=== PATIENT | male | born 1985 | race Caucasian/White ===

== ENCOUNTER 2018-03-26 02:03 | Emergency (ER) | payer OTHER ==
[~2018-03-26] VITALS: Ht 170.2 cm; Wt 88.5 kg
[~2018-03-26 02:03] MED LIST: AMT25 PO; ATV5 PO; FLX10 PO; MELA3TAB7
[2018-03-26 02:05] VITALS: Ht 170.2 cm; Wt 88.5 kg
[2018-03-26] MEDS ORDERED: PRLSR20 PO (02:30)
[2018-03-26] MEDS ORDERED: AMPH30TA2 PO (02:31)
[2018-03-26] MEDS ORDERED: DiphenhydrAMINE HCL 50 MG/ML VIAL IV STA (02:31)
[2018-03-26] MEDS ORDERED: ONDA4TAB46 PO (02:31)
[2018-03-26] MEDS ORDERED: PROCHLORPERAZINE 5 MG/ML 2 ML VIAL IV STA (02:31)
[2018-03-26] MEDS ORDERED: SODIUM CHLORIDE 0.9% 1000ML 1,000 ML IV STA (02:31)
[2018-03-26] MEDS ORDERED: SUMATRIPTAN SUCCINATE 6 MG/0.5 ML VIAL SQ STA (02:31)
--- NOTE | 2018-03-26 02:31 | EMERGENCY ROOM VISIT NOTE ---
History Report prepared by Pavel: Denver Robles Under the Supervision of: Dr. Ragini Webb D.O. First contact with patient: 02:11 Chief Complaint: HEADACHE Stated Complaint: MIGRAINE History of Present Illness The patient is a 32 year old male who presents to the Emergency Room with complaints of a constant, severe, headache beginning 3.5 hours ago. The patient states he has a history of migraines. He reports he had his first migraine in a while one year ago. The patient notes he was given IV Tylenol and sumatriptan, and this helped his symptoms. He states he had another 4 months later. The patient reports he obtained glasses and then has not had another one until this evening. He notes he typically has an eye twitch before his migraines start. The patient states he felt his eye twitch before he went to be at 9PM. He reports he woke up at 11PM with his migraine and took 1000mg of Tylenol and 600mg ibuprofen. This was dull and constant and slowly worsening. The patient notes his pain continued, and he took another 1000mg of Tylenol at 12AM. He states lying back worsens his symptoms and sitting up helps. The patient reports his migraine typically is located in the front of his head, but this one is located in the front and in the back. He reports he also has a right ear ache which is not typical. He notes the positional changes are typical. The patient states he also has nausea, a runny nose, and congestion, which are all markers of his usual migraines. He denies having any triggers of his migraines. The patient reports he used to take amitriptyline and sumatriptan, but he stopped them because he had not had a migraine in a long time. He notes he also has a family history of migraines. The patient states he typically has two Coca- [employer]a a day, but for the past week he has only had two total. He denies fevers, chills, changes in diet, changes in medication, vomiting, diarrhea, shortness of breath, leg swelling, palpitations, ear ringing, numbness, weakness, and a history of prolonged migraines. No recent head trauma. Not recently ill. Source of History: patient Onset: 3.5 hours ago Position: head Symptom Intensity: severe Quality: ache Timing: constant Modifying Factors (Worsening): other (lying down) Modifying Factors (Relieving): other (sitting up) Associated Symptoms: + nausea, No fevers, No chills, No SOB, No vomiting, No weakness, No numbness Note: Associated symptoms: right ear ache, runny nose, congestion Denies: ear ringing, leg swelling, palpitations Review of Systems See HPI for pertinent positives & negatives. A total of 10 systems reviewed and were otherwise negative. Past Medical & Surgical Medical Problems: (1) Migraine Family History Patient reports no known family medical history. Social History Smoking Status: Never Smoker Occupation Status: employed Current/Historical Medications Scheduled Amphetamine-Dextroamphetamine 30MG (Adderall 30MG), 30 MG PO QAM Omeprazole (Prilosec), 20 MG PO DAILY Scheduled PRN Ondansetron Hcl (Zofran), 4 MG PO Q8 PRN for Nausea Trazodone Hcl (Trazodone), Unknown Dose PO HS PRN for Insomnia Allergies Coded Allergies: Latex1 -Allergic Contact Dermititis (Unverified Allergy, Mild, 07/14/08) Physical Exam Vital Signs Date Time Temp Pulse Resp B/P (MAP) Pulse Ox O2 Delivery O2 Flow Rate FiO2 03/26/18 06:53 77 18 118/73 98 03/26/18 06:12 75 17 111/73 97 Room Air 03/26/18 02:05 36.4 61 18 130/81 96 Room Air Physical Exam GENERAL: alert, well appearing, well nourished, no distress, non-toxic. Photosensitivity noted. Pt sitting in dark room. EYE EXAM: normal conjunctiva, PERRL and EOM's grossly intact OROPHARYNX: no exudate, no erythema, lips, buccal mucosa, and tongue normal and mucous membranes are moist EARS: normal canals b/l, nml TM's b/l, no effusions, no erythema NECK: supple, no nuchal rigidity, no adenopathy, non-tender LUNGS: Clear to auscultation. Normal chest wall mechanics HEART: no murmurs, S1 normal and S2 normal ABDOMEN: abdomen soft, non-tender, normo-active bowel sounds, no masses, no rebound or guarding. BACK: Back is symmetrical on inspection and there is no deformity, no midline tenderness, no CVA tenderness. SKIN: no rashes and no bruising UPPER EXTREMITIES: upper extremities are grossly normal. FROM, nml pulses. LOWER EXTREMITIES: No pitting edema. FROM, nml pulses. NEURO EXAM: Normal sensorium, cranial nerves II-XII grossly intact, normal speech, no gross weakness of arms, no gross weakness of legs. Medical Decision & Procedures ER Provider Diagnostic Interpretation: Radiology results have been interpreted by the [facility] radiologist and reviewed by me. CT HEAD: FINDINGS: No intracranial hemorrhage, abnormal intra- or extra-axial collections or parenchymal lesions are seen. The shape and configuration of the cortical sulci, basal cisterns and ventricles are within normal limits. The aiken -white differentiation is preserved. No evidence of mass effect, midline shift, or edema. The osseous structures are unremarkable. The visualized portions of the paranasal sinuses are clear. Mastoid air cells are well pneumatized. IMPRESSION: Normal non-contrast CT scan of the head. Radiologist: Jax Fuentes MD Study ready at 0314 and initial results transmitted at 0334. Medications Administered Medications (Trade) Dose Ordered Sig/Renata Route Start Time Stop Time Status Last Admin Dose Admin Prochlorperazine Edisylate (Compazine Inj) 5 mg NOW STAT IV 03/26/18 02:31 03/26/18 02:36 DC 03/26/18 02:48 5 MG Diphenhydramine HCl (Benadryl Inj) 25 mg NOW STAT IV 03/26/18 02:31 03/26/18 02:36 DC 03/26/18 02:47 25 MG Sumatriptan Succinate (Imitrex Sq Inj) 6 mg NOW STAT SQ 03/26/18 02:31 03/26/18 02:36 DC 03/26/18 02:50 6 MG Sodium Chloride 1,000 ml @ 999 mls/hr Q1H1M STAT IV 03/26/18 02:31 03/26/18 03:31 DC 03/26/18 02:55 999 MLS/HR ED Course 0217: The patient was evaluated in room A02. A complete history and physical exam was performed. 0231: Ordered Sodium Chloride 1000 ml @ 999 mls/hr IV, Sumatriptan Succinate 6mg SQ, Benadryl Inj 25mg IV, Compazine 5mg IV 0257: Ordered Acetaminophen 100ml @ 400 mls/hr Protocol IV 0403: I reevaluated the patient. He is sleeping. 0428: I reevaluated the patient. He is sleeping. 0644: Upon reevaluation, the patient is feeling better. I discussed the findings and the treatment plan with the patient. He verbalizes agreement and understanding. The patient was discharged home. Medical Decision Differential Diagnosis includes but is not limited to headache, tension headache , cluster headache, migraine, subarachnoid hemorrhage, meningitis, mass, central venous thrombus, concussion, trauma and epidural/subdural hemorrhage. Pt well appearing here. CT head reassuring. Non focal neuro exam at bedside. MA mostly similar to prior migraines, however these are infrequent. No thunderclap or sudden severity to more indicate more likely SAH. Pt improved here with usual migraine meds and IVF. VSS throughout. Discussed with pt diet and hydration, f/u with PCP, sx to watch/return for, he verbalized understanding and was agreeable with plan. I do not suspect SAH, occult traumatic injury, meningitis/encephalitis, NPH, or central venous sinus thrombus. No other symptoms to suggest vascular etiology or other ocular pathology. Medication Reconcilliation Current Medication List: was personally reviewed by me Blood Pressure Screening Patient's blood pressure: Elevated blood pressure Blood pressure disposition: Elevated BP felt to be situational Impression Primary Impression: Headache Additional Impression: Migraine Scribe Attestation The scribe's documentation has been prepared under my direction and personally reviewed by me in its entirety. I confirm that the note above accurately reflects all work, treatment, procedures, and medical decision making performed by me. Departure Information Dispostion Home / Self-Care Referrals No Doctor, Assigned (PCP) Forms HOME CARE DOCUMENTATION FORM, IMPORTANT VISIT INFORMATION Patient Instructions ED Headache Migraine, My [facility] Additional Instructions Please rest and stay well-hydrated. You may eat a regular diet. If you feel well you may return to normal activity. If you have any recurrent or worsening headaches, develop fevers, dizziness, weakness, vision changes, vomiting, or you have any other new concerns, please return the emergency room. Problem Qualifiers Primary Impression: Headache Headache type: unspecified Headache chronicity pattern: acute headache Intractability: not intractable Qualified Codes: R51 - Headache Additional Impression: Migraine Migraine type: unspecified Status migrainosus presence: without status migrainosus Intractability: not intractable Qualified Codes: G43.909 - Migraine, unspecified, not intractable, without status migrainosus
[2018-03-26] MEDS ORDERED: TRAZ100T29 PO (02:32)
[2018-03-26] MEDS ORDERED: ACETAMINOPHEN IV 100 ML IV STA (02:57)
[2018-03-26 06:53] VITALS: BP 118/73; PULSE 77; O2SAT 98
--- NOTE | 2018-03-26 07:04 | DIAGNOSTIC IMAGING REPORT ---
HEAD CT NONCONTRAST CT DOSE: 537.48 mGy.cm HISTORY: atypical headache TECHNIQUE: Multiaxial CT images of the head were performed without the use of intravenous contrast. Automated exposure control was utilized for this study. A dose lowering technique was utilized adhering to the principles of ALARA. Comparison: None. Findings: The paranasal sinuses and mastoid air cells are clear. The calvarium and skull base are intact. The ventricles and sulci are within normal limits. There is no mass, hematoma, midline shift, or acute infarct. Impression: No acute intracranial abnormality. Electronically signed by: Carlos Mobley M.D. 03/26/2018 7:03 AM Dictated Date/Time: 03/26/2018 7:01 AM
== END 2018-03-26 06:54 | disposition home or self-care (01) ==
LOC: C.EDB 02:05 → C.EDA 06:54
DX: G43.909 Migraine, unspecified, not intractable, without status migrainosus (principal); Z79.899 Other long term (current) drug therapy; Z91.040 Latex allergy status